=== PATIENT | female | born 1970 | race Caucasian/White ===

== ENCOUNTER → 2016-12-16 | Outpatient (CLI) | payer OTHER ==
--- NOTE | 2016-12-17 10:02 | MM ---
Reason for exam: follow-up at short interval from prior study. Last mammogram was performed 6 months ago. History: Patient is nulliparous. Family history of breast cancer in maternal cousin at age 42, premenopausal breast cancer in mother at age 40, and premenopausal breast cancer in paternal cousin at age 38. Benign MG stereo VAD BX RT of the right breast, June 16, 2016. Cancelled Left Needle Localization of both breasts, October 22, 2006. Cancelled Left Mammotome of the left breast, October 15, 2006. Benign excisional biopsy of the right breast, August 30, 2000. Physical Findings: Nurse did not find any significant physical abnormalities on exam. MG 3D Diag Mammo W/Cad RT CC and MLO view(s) were taken of the right breast. Prior study comparison: June 08, 2016, bilateral MG 3d diag mammo w/cad DIONI. The breast tissue is extremely dense which could obscure a lesion on mammography. Previous mammotome biopsy within the right breast. No significant new findings when compared with previous films. These results were verbally communicated with the patient and result sheet given to the patient on 12/16/16. ASSESSMENT: Benign, BI-RAD 2 RECOMMENDATION: Follow-up diagnostic mammogram of both breasts in 6 months. Back on schedule May 2017.
== END | disposition home or self-care (01) ==
LOC: RADMAMWWP 15:31
PROVIDERS: ATTEND Surgery
DX: R92.8 Other abnormal and inconclusive findings on diagnostic imaging of breast (principal); N83.209 Unspecified ovarian cyst, unspecified side
CPT/HCPCS: 86304; G0206; G0279

== ENCOUNTER → 2017-06-16 | Outpatient (CLI) | payer OTHER ==
--- NOTE | 2017-06-17 07:58 | MM ---
Reason for exam: follow-up at short interval from prior study. Last mammogram was performed 6 months ago. History: Patient is nulliparous. Family history of breast cancer in maternal cousin at age 42, premenopausal breast cancer in mother at age 40, and premenopausal breast cancer in paternal cousin at age 38. Benign MG stereo VAD BX RT of the right breast, June 16, 2016. Cancelled Left Needle Localization of both breasts, October 22, 2006. Cancelled Left Mammotome of the left breast, October 15, 2006. Benign excisional biopsy of the right breast, August 30, 2000. Physical Findings: Nurse did not find any significant physical abnormalities on exam. MG 3D Diag Mammo W/Cad DIONI Bilateral CC and MLO view(s) were taken. Prior study comparison: December 16, 2016, right breast MG 3d diag mammo w/cad RT. June 08, 2016, bilateral MG 3d diag mammo w/cad DIONI. The breast tissue is heterogeneously dense. This may lower the sensitivity of mammography. Finding: There are typically benign round calcifications in both breasts. Previous mammotome biopsy in the right breast. There is a chronic nodularity bilaterally at axilla. There is no discrete abnormality. These results were verbally communicated with the patient and result sheet given to the patient on 06/16/17. ASSESSMENT: Benign, BI-RAD 2 RECOMMENDATION: Routine screening mammogram of both breasts in 1 year.
== END | disposition home or self-care (01) ==
LOC: RADMAMWWP 15:26
PROVIDERS: ATTEND Student in an Organized Health Care Education/Training Program
DX: R92.8 Other abnormal and inconclusive findings on diagnostic imaging of breast (principal)
CPT/HCPCS: G0204; G0279

== ENCOUNTER → 2017-11-17 | Outpatient (CLI) | payer BC ==
--- NOTE | 2017-11-17 12:52 | US ---
EXAMINATION TYPE: US transvaginal DATE OF EXAM: 11/17/2017 COMPARISON: 10/31/2014 CLINICAL HISTORY: 47-year-old female D25.9 Uterine Fibroids. F/U known fibroid TECHNIQUE: Transvaginal (TV). Date of LMP: 11/12/2017 FINDINGS: EXAM MEASUREMENTS: Uterus: 9.9 x 6.9 x 7.1 cm Endometrial Stripe: Difficult to clearly delineate, estimated at 0.6 cm Right Ovary: 2.6 x 1.5 x 1.8 cm Left Ovary: 2.4 x 1.4 x 2.0 cm 1. Uterus: Anteverted Heterogeneous with known large central fibroid measuring= 5.8 x 5.3 x 6.1 cm (increased in size since previous where it measured 5.1 x 4.6 cm). 2. Endometrium: Difficult to clearly delineate, seems to be displaced posteriorly by the large fibro id. 3. Right Ovary: wnl 4. Left Ovary: wnl 5. Bilateral Adnexa: wnl 6. Posterior cul-de-sac: wnl IMPRESSION: 1. Large central uterine fibroid measuring 6.1 x 5.8 cm shows interval increase in size, previously m easuring 5.1 x 4.6 cm. 2. The endometrial stripe is difficult to delineate due to the large fibroid but appears to be displa ramila posteriorly. If more detailed fibroid mapping is desired, consider female pelvic MRI.
== END | disposition home or self-care (01) ==
LOC: RADUSWWP 09:32
PROVIDERS: ATTEND Obstetrics & Gynecology
DX: D25.9 Leiomyoma of uterus, unspecified (principal)
CPT/HCPCS: 76830

== ENCOUNTER → 2017-11-17 | Outpatient (CLI) | payer BC | LOC: LABWHC1 09:57 | PROVIDERS: ATTEND Obstetrics & Gynecology | DX: N83.209 Unspecified ovarian cyst, unspecified side (principal) | CPT/HCPCS: 36415; 86304 ==

== ENCOUNTER → 2018-06-17 | Outpatient (CLI) | payer BC ==
--- NOTE | 2018-06-17 11:15 | MM ---
Reason for exam: additional evaluation requested from prior study. Last mammogram was performed 1 year ago. History: Patient is nulliparous. Family history of breast cancer in maternal cousin at age 42, premenopausal breast cancer in mother at age 40, and premenopausal breast cancer in paternal cousin at age 38. Benign MG stereo VAD BX RT of the right breast, June 16, 2016. Cancelled Left Needle Localization of both breasts, October 22, 2006. Cancelled Left Mammotome of the left breast, October 15, 2006. Benign excisional biopsy of the right breast, August 30, 2000. Physical Findings: Nurse did not find any significant physical abnormalities on exam. MG 3D Diag Mammo W/Cad DIONI Bilateral CC and MLO view(s) were taken. Prior study comparison: June 16, 2017, bilateral MG 3d diag mammo w/cad DIONI. December 16, 2016, right breast MG 3d diag mammo w/cad RT. The breast tissue is extremely dense which could obscure a lesion on mammography. Stable benign calcifications. Increasing nodularity upper outer right breast. These results were verbally communicated with the patient and result sheet given to the patient on 06/17/18. ASSESSMENT: Incomplete: need additional imaging evaluation, BI-RAD 0 RECOMMENDATION: Ultrasound of both breasts.
--- NOTE | 2018-06-17 11:18 | USB ---
Reason for exam: additional evaluation requested from abnormal screening. History: Patient is nulliparous. Family history of breast cancer in maternal cousin at age 42, premenopausal breast cancer in mother at age 40, and premenopausal breast cancer in paternal cousin at age 38. Benign MG stereo VAD BX RT of the right breast, June 16, 2016. Cancelled Left Needle Localization of both breasts, October 22, 2006. Cancelled Left Mammotome of the left breast, October 15, 2006. Benign excisional biopsy of the right breast, August 30, 2000. US Breast Limited RT Right limited breast ultrasound including focal area of concern, retroareolar and axilla demonstrates a 3 x 1.4 x 2.6cm oval, cystic lesion at 9 o'clock favor simple cyst due to size and deep location advise, a 0.7 x 0.3 x 0.5cm cystic lesion at 12 o'clock and a 0.4 x 0.4 x 0.5cm mixed, hypoechoic lesion at 12 o'clock. These results were verbally communicated with the patient and result sheet given to the patient on 06/17/18. ASSESSMENT: Probably benign, BI-RAD 3 RECOMMENDATION: Ultrasound of the right breast in 6 months.
== END | disposition home or self-care (01) ==
LOC: RADMAMWWP 07:28
PROVIDERS: ATTEND Student in an Organized Health Care Education/Training Program
DX: R92.8 Other abnormal and inconclusive findings on diagnostic imaging of breast (principal)
CPT/HCPCS: 77062; 77066

== ENCOUNTER → 2018-12-01 | Outpatient (CLI) | payer BC ==
--- NOTE | 2018-12-01 09:52 | US ---
EXAMINATION TYPE: US transvaginal DATE OF EXAM: 12/01/2018 COMPARISON: 11/17/2017 CLINICAL HISTORY: D25.9 F/U Uterine Fibroid. TECHNIQUE: . Transvaginal sonographic images were medically necessary per order to better assess the following anatomy: uterus and ovary; patient stated is on last day of menstrual cycle; G0. Date of LMP: 11/27/2018 EXAM MEASUREMENTS: Uterus: 9.9 x 8.5 x 8.5 cm Endometrial Stripe: 1.2 cm. Assessment is limited. Right Ovary: 3.1 x 1.1 x 1.2 cm Left Ovary: 2.8 x 2.4 x 1.2 cm 1. Uterus: Anteverted; complex Nabothian Cyst imaged in cervix = 0.8 x 0.6 x 0.4cm ; heterogeneous u terine fibroid mid and upper uterus and may be compressing and obscuring true borders of endometrium. 2. Endometrium: possibly seen in upper uterus. Assessment is markedly limited. 3. Right Ovary: wnl 4. Left Ovary: small simple cyst = 1.1 x 1.1 x 0.7cm 5. Bilateral Adnexa: wnl 6. Posterior cul-de-sac: wnl IMPRESSION: 1. There is a heterogeneous appearing mass in the mid and upper uterus likely related to a fibroid wh ich obscures the borders of the endometrium. Has a similar appearance to the prior exam. Complex cyst ic structure in the cervix noted measuring 8 mm. Recommend assessment of the cervix. 2. Limited assessment of the endometrium due to large suspected heterogeneous uterine fibroid which w as also noted on the prior exam. Visualized portions measure 1.2 cm and should be correlated with denisse rine cycle for thickness.
== END | disposition home or self-care (01) ==
LOC: RADUSWWP 08:46
PROVIDERS: ATTEND Obstetrics & Gynecology
DX: D25.9 Leiomyoma of uterus, unspecified (principal); N83.209 Unspecified ovarian cyst, unspecified side
CPT/HCPCS: 36415; 76830; 86304

== ENCOUNTER → 2018-12-28 | Outpatient (CLI) | payer BC ==
--- NOTE | 2018-12-29 07:41 | USB ---
Reason for exam: follow-up at short interval from prior study. History: Patient is nulliparous. Family history of breast cancer in maternal cousin at age 42, premenopausal breast cancer in mother at age 40, and premenopausal breast cancer in paternal cousin at age 38. Benign MG stereo VAD BX RT of the right breast, June 16, 2016. Cancelled Left Needle Localization of both breasts, October 22, 2006. Cancelled Left Mammotome of the left breast, October 15, 2006. Benign excisional biopsy of the right breast, August 30, 2000. Physical Findings: Nurse did not find any significant physical abnormalities on exam. US Breast RT Right complete breast ultrasound includes all four quadrants, the retroareolar region and axilla. Finding demonstrates a 3.2 x 1.0 x 2.6cm oval, cystic lesion at 10 o'clock BB and a 0.8 x 0.3 x 0.5cm lobular, cystic lesion at 11 o'clock BB. These results were verbally communicated with the patient and result sheet given to the patient on 12/28/18. ASSESSMENT: Benign, BI-RAD 2 RECOMMENDATION: Routine screening mammogram of both breasts in 5 months. Back on schedule for May 2019.
== END | disposition home or self-care (01) ==
LOC: RADUSWWP 14:52
PROVIDERS: ATTEND Student in an Organized Health Care Education/Training Program
DX: N60.01 Solitary cyst of right breast (principal)

== ENCOUNTER → 2019-06-29 | Outpatient (CLI) | payer OTHER ==
--- NOTE | 2019-06-30 15:08 | MM ---
Reason for exam: screening (asymptomatic). Last mammogram was performed 1 year ago. History: Patient is nulliparous. Family history of breast cancer in maternal cousin at age 42, premenopausal breast cancer in mother at age 40, and premenopausal breast cancer in paternal cousin at age 38. Benign MG stereo VAD BX RT of the right breast, June 16, 2016. Cancelled Left Needle Localization of both breasts, October 22, 2006. Cancelled Left Mammotome of the left breast, October 15, 2006. Benign excisional biopsy of the right breast, August 30, 2000. Physical Findings: A clinical breast exam by your physician is recommended on an annual basis and results should be correlated with mammographic findings. MG 3D Screening Mammo W/Cad Bilateral CC and MLO view(s) were taken. Prior study comparison: June 17, 2018, bilateral MG 3d diag mammo w/cad DIONI. June 16, 2017, bilateral MG 3d diag mammo w/cad DIONI. The breast tissue is heterogeneously dense. This may lower the sensitivity of mammography. There is a oval circumscribed 2.2 x 3.7cm right upper outer quadrant middle posterior depth mass. Benign appearing bilateral calcifications. No new suspicious abnormality on the left breast. Right biopsy marker noted. ASSESSMENT: Incomplete: need additional imaging evaluation, BI-RAD 0 RECOMMENDATION: Ultrasound of the right breast. [facility] will attempt to contact patient to return for ultrasound.
== END | disposition home or self-care (01) ==
LOC: RADMAMWWP 07:51
PROVIDERS: ATTEND Student in an Organized Health Care Education/Training Program
DX: Z12.31 Encounter for screening mammogram for malignant neoplasm of breast (principal)
CPT/HCPCS: 77063; 77067

== ENCOUNTER → 2019-07-07 | Outpatient (CLI) | payer OTHER ==
--- NOTE | 2019-07-07 09:33 | USB ---
Reason for exam: additional evaluation requested from abnormal screening. History: Patient is nulliparous. Family history of breast cancer in maternal cousin at age 42, premenopausal breast cancer in mother at age 40, and premenopausal breast cancer in paternal cousin at age 38. Benign MG stereo VAD BX RT of the right breast, June 16, 2016. Cancelled Left Needle Localization of both breasts, October 22, 2006. Cancelled Left Mammotome of the left breast, October 15, 2006. Benign excisional biopsy of the right breast, August 30, 2000. Physical Findings: Nurse Summary: nodular asymmetric thickening (nurse kp). US Breast Workup Limited RT Right limited breast ultrasound including focal area of concern, retroareolar and axilla demonstrates a 3.5 x 2.0 x 1.9cm oval, lobular, cystic lesion at 10 o'clock and a 0.8 x 0.6 x 0.3cm cystic cluster with small calcification at 11 o'clock. These results were verbally communicated with the patient and result sheet given to the patient on 07/07/19. ASSESSMENT: Benign, BI-RAD 2 RECOMMENDATION: Return to routine screening mammogram schedule for both breasts.
== END | disposition home or self-care (01) ==
LOC: RADUSWWP 06:58
PROVIDERS: ATTEND Student in an Organized Health Care Education/Training Program
DX: R92.8 Other abnormal and inconclusive findings on diagnostic imaging of breast (principal)

== ENCOUNTER → 2020-02-09 | Outpatient (CLI) | payer OTHER ==
--- NOTE | 2020-02-20 10:43 | EM ---
EVENT MONITOR EVENT MONITOR: This is an event monitor which shows. 1. Sinus rhythm. 2. Mostly sinus tachycardia, one atrial couplet. No sustained or nonsustained arrhythmias. IMPRESSION: Sinus tachycardia. MMODL / IJN: [id number] /
== END | disposition home or self-care (01) ==
LOC: RADECHMAIN 11:57
PROVIDERS: ATTEND Family Medicine
DX: R00.2 Palpitations (principal)
CPT/HCPCS: 93270

== ENCOUNTER → 2020-02-28 | Outpatient (CLI) | payer OTHER ==
--- NOTE | 2020-03-04 15:10 | US ---
EXAMINATION TYPE: US transvaginal DATE OF EXAM: 02/28/2020 COMPARISON: 12/01/2018 CLINICAL HISTORY: 49-year-old female D25.9 Leiomyoma of uterus, unspecified. TECHNIQUE: Transvaginal (TV). Date of LMP: 3 weeks ago FINDINGS: EXAM MEASUREMENTS: Uterus: 9.5 x 4.1 x 7.3 cm Endometrial Stripe: 1.4 cm Right Ovary: 3.4 x 3.6 x 1.9 cm Left Ovary: 2.3 x 2. x 2.4 cm 1. Uterus: Anteverted but retroflexed. Large left fibroid measures 6.9 x 6.2 x 6.0 cm, and right michelle ed fibroid measures 4.6 x 2.9 x 3.4 cm. 2. Endometrium: wnl, upper limits of normal in thickness 3. Right Ovary: wnl 4. Left Ovary: Mixed lesion with peripheral flow measures 1.8 x 1.6 x 1.2 cm. 5. Bilateral Adnexa: wnl 6. Posterior cul-de-sac: No free fluid IMPRESSION: 1. Anteverted but retroflexed uterus with fibroid change, largest fibroid measuring 8.9 cm on the lef t and 4.6 cm on the right. Vertebral either a hemorrhagic corpus luteum or other hemorrhagic cyst with retractile clot in the le ft ovary measuring 1.8 cm. Follow-up in 6-8 weeks to ensure resolution.
== END | disposition home or self-care (01) ==
LOC: RADUSWWP 14:53
PROVIDERS: ATTEND Obstetrics & Gynecology
DX: D25.9 Leiomyoma of uterus, unspecified (principal); N83.12 Corpus luteum cyst of left ovary
CPT/HCPCS: 36415; 76830; 86304

== ENCOUNTER → 2020-03-20 | Outpatient (CLI) | payer OTHER ==
--- NOTE | 2020-03-20 18:36 | ECHOF ---
Referral Reason:R00.2 Palpitations MEASUREMENTS -------- HEIGHT: 167.6 cm WEIGHT: 81.2 kg BP: 137/75 RVIDd: 2.4 cm (< 3.3) IVSd: 0.9 cm (0.6 - 1.1) LVIDd: 3.8 cm (3.9 - 5.3) LVPWd: 0.9 cm (0.6 - 1.1) IVSs: 1.3 cm LVIDs: 2.4 cm LVPWs: 1.5 cm LA Diam: 2.9 cm (2.7 - 3.8) LAESV Index (A-L): 21.03 ml/m Ao Diam: 2.6 cm (2.0 - 3.7) MV EXCURSION: 16.139 mm (> 18.000) MV EF SLOPE: 129 mm/s (70 - 150) EPSS: 0.4 cm MV E Gerry: 0.86 m/s MV DecT: 202 ms MV A Gerry: 0.80 m/s MV E/A Ratio: 1.07 RAP: 5.00 mmHg RVSP: 18.48 mmHg FINDINGS -------- Sinus rhythm. This was a technically adequate study. The left ventricular size is normal. Left ventricular wall thickness is normal. Overall left vent ricular systolic function is normal with, an EF between 60 - 65 %. The right ventricle is normal in size. The right atrium is normal in size. Interatrial and interventricular septum intact. The aortic valve is trileaflet and appears structurally normal. The mitral valve is normal. Mild tricuspid regurgitation present. Right ventricular systolic pressure is normal at < 35 mmHg. Trace/mild (physiologic) pulmonic regurgitation. The aortic root size is normal. Normal inferior vena cava with normal inspiratory collapse consistent with estimated right atrial pre ssure of 5 mmHg. There is no pericardial effusion. CONCLUSIONS -------- 1. The left ventricular size is normal. 2. Left ventricular wall thickness is normal. 3. Overall left ventricular systolic function is normal with, an EF between 60 - 65 %. 4. Mild tricuspid regurgitation present. 5. Trace/mild (physiologic) pulmonic regurgitation. 6. There is no pericardial effusion. SUPPORT GROUP MANAGER: Ludmila Neil RUST
== END | disposition home or self-care (01) ==
LOC: RADECHMAIN 14:52
PROVIDERS: ATTEND Family Medicine
DX: I07.1 Rheumatic tricuspid insufficiency (principal); I37.1 Nonrheumatic pulmonary valve insufficiency
CPT/HCPCS: 93306

== ENCOUNTER → 2020-07-15 | Outpatient (CLI) | payer OTHER ==
--- NOTE | 2020-07-15 13:28 | MM ---
Reason for exam: screening (asymptomatic). Last mammogram was performed 1 year and 1 month ago. History: Patient is nulliparous. Family history of breast cancer in maternal cousin at age 42, premenopausal breast cancer in mother at age 40, and premenopausal breast cancer in paternal cousin at age 38. Benign MG stereo VAD BX RT of the right breast, June 16, 2016. Cancelled Left Needle Localization of both breasts, October 22, 2006. Cancelled Left Mammotome of the left breast, October 15, 2006. Benign excisional biopsy of the right breast, August 30, 2000. Physical Findings: A clinical breast exam by your physician is recommended on an annual basis and results should be correlated with mammographic findings. MG 3D Screening Mammo W/Cad Bilateral CC and MLO view(s) were taken. Prior study comparison: June 29, 2019, bilateral MG 3d screening mammo w/cad. June 17, 2018, bilateral MG 3d diag mammo w/cad DIONI. The breast tissue is heterogeneously dense. This may lower the sensitivity of mammography. There are benign appearing round calcifications in the left breast. Previous mammotome biopsy in the right breast. There is no discrete abnormality. ASSESSMENT: Benign, BI-RAD 2 RECOMMENDATION: Routine screening mammogram of both breasts in 1 year.
== END | disposition home or self-care (01) ==
LOC: RADMAMWWP 09:16
PROVIDERS: ATTEND Student in an Organized Health Care Education/Training Program
DX: Z12.31 Encounter for screening mammogram for malignant neoplasm of breast (principal)
CPT/HCPCS: 77063; 77067

== ENCOUNTER → 2021-05-02 | Outpatient (CLI) | payer OTHER ==
--- NOTE | 2021-05-02 10:20 | US ---
EXAMINATION TYPE: US pelvis complete transvag DATE OF EXAM: 05/02/2021 COMPARISON: [facility] pelvic ultrasound February 28, 2020 CLINICAL HISTORY: D25.9 uterine fibroids. Known fibroids, assess size today TECHNIQUE: TA and TV. Transabdominal sonographic images of the pelvis were acquired. Transvaginal sonographic images were medically necessary to better assess the following anatomy: fibroids Date of LMP: 03/29/2021 EXAM MEASUREMENTS: Uterus: 11.0 x 8.3 x 9.0 cm Endometrial Stripe: not seen Right Ovary: 2.3 x 2.1 x 1.9cm Left Ovary: not seen 1. Uterus: Retroflexed, heterogenous and difficult to penetrate due to shadowing fibroid, on today's exam I could not delineate one fibroid from the other, full dimension estimate = 8.3 x 7.8 x 7.2cm 2. Endometrium: unable to visualize with certainty 3. Right Ovary: 1.4 x 2.1 x 1.3cm 4. Left Ovary: not seen 5. Bilateral Adnexa: wnl 6. Posterior cul-de-sac: wnl Retroflexed heterogeneous uterus. Difficult to accurately described fibroids due to shadowing heterog eneity with poorly visualized margins. Endometrial not stripe not seen with certainty no free fluid. Heterogeneous poorly marginated intramural fibroid seen better on transabdominal imaging measures guillermina roximately 8.3 cm long axis towards end of study. IMPRESSION: Poor accurate description of large shadowing intrauterine fibroid. Consider pelvic MRI to better evaluate if desired.
== END | disposition home or self-care (01) ==
LOC: RADUSWWP 09:30
PROVIDERS: ATTEND Obstetrics & Gynecology
DX: D25.9 Leiomyoma of uterus, unspecified (principal)
CPT/HCPCS: 36415; 76830; 76856; 86304

== ENCOUNTER → 2021-07-31 | Outpatient (CLI) | payer OTHER ==
--- NOTE | 2021-08-04 11:36 | MM ---
Reason for exam: screening (asymptomatic). Last mammogram was performed 1 year and 1 month ago. History: Patient is nulliparous. Family history of breast cancer in maternal cousin at age 42, premenopausal breast cancer in mother at age 40, and premenopausal breast cancer in paternal cousin at age 38. Benign MG stereo VAD BX RT of the right breast, June 16, 2016. Cancelled Left Needle Localization of both breasts, October 22, 2006. Cancelled Left Mammotome of the left breast, October 15, 2006. Benign excisional biopsy of the right breast, August 30, 2000. Physical Findings: A clinical breast exam by your physician is recommended on an annual basis and results should be correlated with mammographic findings. MG 3D Screening Mammo W/Cad Bilateral CC and MLO view(s) were taken. Prior study comparison: July 15, 2020, bilateral MG 3d screening mammo w/cad. June 29, 2019, bilateral MG 3d screening mammo w/cad. The breast tissue is heterogeneously dense. This may lower the sensitivity of mammography. Previous mammotome biopsy in the right breast. There is chronic nodularity in the right breast. No significant changes when compared with prior studies. ASSESSMENT: Benign, BI-RAD 2 RECOMMENDATION: Routine screening mammogram of both breasts in 1 year. Patient should continue monthly self breast exams. A negative report should not preclude additional follow up of suspicious palpable abnormalities.
== END | disposition home or self-care (01) ==
LOC: RADMAMWWP 07:32
PROVIDERS: ATTEND Student in an Organized Health Care Education/Training Program
DX: Z12.31 Encounter for screening mammogram for malignant neoplasm of breast (principal); Z80.3 Family history of malignant neoplasm of breast
CPT/HCPCS: 77063; 77067

== ENCOUNTER → 2022-05-04 | Outpatient (CLI) | payer OTHER ==
--- NOTE | 2022-05-04 10:30 | US ---
EXAMINATION TYPE: US transvaginal DATE OF EXAM: 05/04/2022 COMPARISON: Pelvic ultrasound 05/02/2021. CLINICAL HISTORY: D25.9 LEIOMYOMA OF UTERUS. Follow up fibroid. TECHNIQUE: Transvaginal (TV) Date of LMP: 08/03/2021, G0 EXAM MEASUREMENTS: Uterus: 10.1 x 8.0 x 9.0 cm 1. Uterus: Anteverted Large lobular fibroid seen = 7.9 x 7.0 x 6.9 cm . It is again heterogenous a nd difficult to penetrate due to shadowing fibroid. There are calcifications demonstrated within the fibroid with shadowing. 2. Endometrium: Not visualized due to fibroid 3. Right Ovary: Obscured by overlying bowel gas 4. Left Ovary: Obscured by overlying bowel gas 5. Bilateral Adnexa: wnl 6. Posterior cul-de-sac: no free fluid Cervix- nabothian cyst IMPRESSION: Fibroid changes of the uterus redemonstrated with similar large 7.9 cm fibroid. Endometrium is not vi sualized due to fibroid changes. Consider pelvic MRI to better evaluate if desired.
== END | disposition home or self-care (01) ==
LOC: RADUSWWP 08:05
PROVIDERS: ATTEND Obstetrics & Gynecology
DX: D25.9 Leiomyoma of uterus, unspecified (principal)
CPT/HCPCS: 76830; 82310; 86304

== ENCOUNTER → 2022-08-05 | Outpatient (CLI) | payer OTHER ==
--- NOTE | 2022-08-06 17:30 | MM ---
Reason for Exam: Screening (asymptomatic). Last screening mammogram was performed 12 month(s) ago. Patient History: Menarche at age 10. Patient has no children. 06/16/2016, Benign Core Biopsy on the right side. 08/30/2000, Benign Excisional Biopsy on the right side. 10/22/2006, Bilateral Cancelled Left Needle Localization. 10/15/2006, Cancelled Left Mammotome on the left side. Paternal cousin had breast cancer, age 38. Maternal cousin had breast cancer, age 42. Mother had breast cancer, age 40. Risk Values: Queta 5 year model risk: 3.4%. NCI Lifetime model risk: 25.4%. Prior Study Comparison: 06/29/2019 Bilateral Screening Mammogram, [facility]. 07/15/2020 Bilateral Screening Mammogram, [facility]. 07/31/2021 Bilateral Screening Mammogram, [facility]. Tissue Density: The breast tissue is extremely dense which could obscure a lesion on mammography. Findings: Analyzed By CAD. Pattern appears symmetrical and stable. A core marker is within the right breast. There is a new group of calcifications within the medial right breast. Magnification views are recommended. Some grouped calcifications are on the left mid medial lateral oblique view. Magnification views recommended for additional evaluation. No suspicious groups of microcalcifications, spiculated or lobular masses, architectural distortion or other secondary signs of malignancy are mammographically apparent. Overall Assessment: Incomplete: need additional imaging evaluation, BI-RAD 0 Management: Diagnostic Mammogram of both breasts. A negative mammogram report should not preclude additional follow up of suspicious palpable abnormalities. Patient should continue monthly self breast exam. A clinical breast exam by your physician is recommended on an annual basis and results should be correlated with mammographic findings. Electronically signed and approved by: Marko Webster D.O. Radiologis
== END | disposition home or self-care (01) ==
LOC: RADMAMWWP 15:00
PROVIDERS: ATTEND Surgery
DX: Z12.31 Encounter for screening mammogram for malignant neoplasm of breast (principal); Z80.3 Family history of malignant neoplasm of breast; Z98.890 Other specified postprocedural states
CPT/HCPCS: 77063; 77067

== ENCOUNTER → 2022-08-14 | Outpatient (CLI) | payer OTHER ==
--- NOTE | 2022-08-14 13:34 | MM ---
Reason for Exam: Additional evaluation requested from abnormal screening. Last screening mammogram was performed less than 1 month ago. Patient History: Menarche at age 10. Patient has no children. Postmenopausal. 06/16/2016, Benign Core Biopsy on the right side. 08/30/2000, Benign Excisional Biopsy on the right side. 10/22/2006, Bilateral Cancelled Left Needle Localization. 10/15/2006, Cancelled Left Mammotome on the left side. Paternal cousin had breast cancer, age 38. Maternal cousin had breast cancer, age 42. Mother had breast cancer, age 40. Last menstrual period: 08/07/2021 Risk Values: Queta 5 year model risk: 3.4%. NCI Lifetime model risk: 25.4%. Prior Study Comparison: 07/31/2021 Bilateral Screening Mammogram, [facility]. 08/05/2022 Bilateral MG 3D screening mammo w/cad, [facility]. Tissue Density: The breast tissue is heterogeneously dense. This may lower the sensitivity of mammography. Findings: Analyzed By CAD. There are and scattered fine calcifications bilaterally. A suspicious cluster of microcalcifications is not identified. This is a change from prior studies and close follow-up is warranted. Bilateral breast mammogram with magnification views in 6 months is recommended. Overall Assessment: Probably benign, BI-RAD 3 Management: Diagnostic Mammogram of both breasts in 6 months. A clinical breast exam by your physician is recommended on an annual basis and results should be correlated with mammographic findings. This exam should not preclude additional follow-up of suspicious palpable abnormalities. Results were given to the patient verbally at the time of exam. Electronically signed and approved by: Marko Webster D.O. Radiologis
== END | disposition home or self-care (01) ==
LOC: RADMAMWWP 12:48
PROVIDERS: ATTEND Surgery
DX: R92.8 Other abnormal and inconclusive findings on diagnostic imaging of breast (principal); Z78.0 Asymptomatic menopausal state; Z80.3 Family history of malignant neoplasm of breast
CPT/HCPCS: 77062; 77066

== ENCOUNTER → 2022-10-09 | Outpatient (CLI) | payer OTHER ==
--- NOTE | 2022-10-09 07:40 | US ---
EXAMINATION TYPE: US gallbladder DATE OF EXAM: 10/09/2022 COMPARISON: NONE CLINICAL HISTORY: R74.8 ELEVATED ALKALINE PHOSPHATASE LEVELS. TECHNIQUE: Multiple sonographic images of the right upper quadrant are obtained. FINDINGS: EXAM MEASUREMENTS: Liver Length: 12.8 cm Gallbladder Wall: 0.21 cm CBD: 0.15 cm Right Kidney: 9.3 x 4.9 x 5.2 cm Pancreas: wnl Liver: Increased attenuation. Anechoic mass right lobe, 1.5 x 1.6 x 1.3cm. Gallbladder: wnl Evidence for sonographic Orantes's sign: No CBD: wnl Right Kidney: wnl IMPRESSION: 1. Hepatic steatosis. 2. Simple hepatic cyst.
== END | disposition home or self-care (01) ==
LOC: RADUSWWP 07:04
PROVIDERS: ATTEND Family Medicine
DX: K76.0 Fatty (change of) liver, not elsewhere classified (principal); K76.89 Other specified diseases of liver; R74.8 Abnormal levels of other serum enzymes
CPT/HCPCS: 76705

== ENCOUNTER → 2023-02-22 | Outpatient (CLI) | payer OTHER ==
--- NOTE | 2023-02-22 14:40 | MM ---
Reason for Exam: Follow-up at short interval from prior study. Last screening mammogram was performed 7 month(s) ago. Patient History: Menarche at age 10. Patient has no children. Postmenopausal. 06/16/2016, Benign Core Biopsy on the right side. 08/30/2000, Benign Excisional Biopsy on the right side. 10/22/2006, Bilateral Cancelled Left Needle Localization. 10/15/2006, Cancelled Left Mammotome on the left side. Paternal cousin had breast cancer, age 38. Maternal cousin had breast cancer, age 42. Mother had breast cancer, age 40. Risk Values: Queta 5 year model risk: 3.5%. NCI Lifetime model risk: 25.0%. Tissue Density: The breast tissue is heterogeneously dense. This may lower the sensitivity of mammography. Findings: Analyzed By CAD. Pattern appears symmetrical and stable. Calcifications are evident. These grouped calcifications bilaterally appear stable. Surgical clip is within the right breast. No suspicious groups of microcalcifications, spiculated or lobular masses, architectural distortion or other secondary signs of malignancy are mammographically apparent. Overall Assessment: Probably benign, BI-RAD 3 Management: Diagnostic Mammogram of both breasts in 6 months. A negative mammogram report should not preclude additional follow up of suspicious palpable abnormalities. Patient should continue monthly self breast exam. A clinical breast exam by your physician is recommended on an annual basis and results should be correlated with mammographic findings. Electronically signed and approved by: Marko Webster D.O. Radiologis
== END | disposition home or self-care (01) ==
LOC: RADMAMWWP 14:05
PROVIDERS: ATTEND Surgery
DX: R92.8 Other abnormal and inconclusive findings on diagnostic imaging of breast (principal); Z78.0 Asymptomatic menopausal state; Z80.3 Family history of malignant neoplasm of breast
CPT/HCPCS: 77062; 77066

== ENCOUNTER → 2023-03-09 | Outpatient (CLI) | payer OTHER ==
--- NOTE | 2023-03-09 13:06 | US ---
EXAMINATION TYPE: US transvaginal DATE OF EXAM: 03/09/2023 COMPARISON: 05/04/2022 CLINICAL INDICATION: Female, 52 years old with history of D25.9 LEIOMYOMA OF UTERUS; follow up fibroi d TECHNIQUE: Transvaginal (TV) Transvaginal sonographic images were medically necessary to better ass ess the following anatomy: Uterus Date of LMP: last period was July 2021, but there was a period like episode early December 2022 EXAM MEASUREMENTS: Uterus: 6.5x6.3x8.1 cm Endometrial Stripe: 0.5, not measured with confidence cm Right Ovary: not visualized cm Left Ovary: 1.4x0.9x1.0 cm 1. Uterus: Anteverted large fibroid again seen with calcified and heterogenous components: 6.5x6.1 x6.9cm, difficult to measure due to size and shadowing 2. Endometrium: obscured by fibroid, small portion of possible endometrium imaged and measured at fu ndus with low confidence 3. Right Ovary: Obscured by overlying bowel gas 4. Left Ovary: wnl 5. Bilateral Adnexa: Obscured by overlying bowel gas 6. Posterior cul-de-sac: wnl exam slightly limited due to bowel gas and large fibroid IMPRESSION: 1. Stable features of fibroid uterus.
[2023-03-09 15:39] LABS: Basophils # (A) 0.03 X 10*3/uL (0.00-0.10); Basophils % (A) 0.6 %; Eosinophils # (A) 0.12 X 10*3/uL (0.04-0.35); Eosinophils % (A) 2.3 %; HCT 39.8 % (37.2-46.3); HGB 13.4 d/dL (12.0-15.0); Lymphocytes # (A) 1.53 X 10*3/uL (0.90-5.00); Lymphocytes % (A) 29.7 %; MCH 29.8 pg (27.0-32.0); MCHC 33.7 d/dL (32.0-37.0); MCV 88.4 FL (80.0-97.0); Mean Platelet Volume 9.9 FL (9.5-12.2); Monocytes # (A) 0.44 X 10*3/uL (0.20-1.00); Monocytes % (A) 8.5 %; NRBC Per 100 WBC 0 X 10*3/uL (0.00-0.01); Neutrophils # (A) 3.02 X 10*3/uL (1.80-7.70); Neutrophils % (A) 58.7 %; Platelet Count 255 X 10*3/uL (140-440); RDW 12.3 % (11.5-14.5); WBC 5.15 X 10*3/uL (4.50-10.00)
[2023-03-09 15:48] LABS: ALT 29 U/L (8-44); AST 25 U/L (13-35); Albumin 4.9 d/dL (3.8-4.9); Albumin/Globulin Ratio 2.23 Ratio (1.60-3.17); Alkaline Phosphatase 146 U/L (41-126); Blood Urea Nitrogen 19.5 mg/dL (9.0-27.0); Calcium 9.6 mg/dL (8.7-10.3); Carbon Dioxide 26.3 mmol/L (21.6-31.8); Chloride 104 mmol/L (96-109); Globulin 2.2 d/dL (1.6-3.3); Glucose 95 mg/dL (70-110); Potassium 4.2 mmol/L (3.5-5.5); Sodium 141 mmol/L (135-145); Total Bilirubin 0.2 mg/dL (0.3-1.2); Total Protein 7.1 d/dL (6.2-8.2)
[2023-03-10 03:46] LABS: Cancer Antigen 125 15.6 U/mL (0.0-30.1)
== END | disposition home or self-care (01) ==
LOC: RADUSWWP 12:09
PROVIDERS: ATTEND Obstetrics & Gynecology
DX: D25.9 Leiomyoma of uterus, unspecified (principal); K76.0 Fatty (change of) liver, not elsewhere classified; N83.209 Unspecified ovarian cyst, unspecified side
CPT/HCPCS: 76830; 80053; 85025; 86304

== ENCOUNTER → 2023-08-27 | Outpatient (CLI) | payer OTHER ==
--- NOTE | 2023-08-27 10:13 | USB ---
Reason for Exam: Additional evaluation requested from prior study. Patient History: Menarche at age 10. Patient has no children. Postmenopausal. Patient tested for BRCA2 outcome was uncertain variant. 06/16/2016, Benign Core Biopsy on the right side. 08/30/2000, Benign Excisional Biopsy on the right side. 10/22/2006, Bilateral Cancelled Left Needle Localization. 10/15/2006, Cancelled Left Mammotome on the left side. Paternal cousin had breast cancer, age 38. Maternal cousin had breast cancer, age 42. Mother had breast cancer, age 40. Risk Values: Queta 5 year model risk: 3.5%. NCI Lifetime model risk: 25.0%. Technique: Method: Targeted. Prior Study Comparison: 08/05/2022 Bilateral MG 3D screening mammo w/cad, [facility]. 08/14/2022 Bilateral MG 3D work up w/cad [facility], [facility]. 02/22/2023 Bilateral MG 3D diag mammo w/cad [facility], [facility]. Findings: The periareolar of the left breast, the lower section of the breast of the left breast and the retroareolar of the left breast were scanned. Nodular density identified at the left 6:00 position 8 cm from the nipple with internal echoes likely reflects a complex cyst. No solid masses appreciated with certainty. Six-month follow-up mammography and ultrasound is advised.. Overall Assessment: Probably benign, BI-RAD 3 Management: Diagnostic Mammogram of the left breast in 6 months. A clinical breast exam by your physician is recommended on an annual basis and results should be correlated with mammographic findings. This exam should not preclude additional follow-up of suspicious palpable abnormalities. Results were given to the patient verbally at the time of exam. Electronically signed and approved by: Paras Gayle M.D. Radiologis
== END | disposition home or self-care (01) ==
LOC: RADMAMWWP 09:07
PROVIDERS: ATTEND Surgery
DX: R92.8 Other abnormal and inconclusive findings on diagnostic imaging of breast (principal); Z78.0 Asymptomatic menopausal state; Z80.3 Family history of malignant neoplasm of breast
CPT/HCPCS: 77062; 77066

== ENCOUNTER → 2024-01-05 | Outpatient (CLI) | payer OTHER ==
--- NOTE | 2024-01-05 16:21 | CT ---
EXAMINATION TYPE: CT cervical spine wo con DATE OF EXAM: 01/05/2024 COMPARISON: None HISTORY: Rt side neck pain x6-8wks, no injury. Radiates down rt arm. CT DLP: 627 mGycm CONTRAST: None CT of the cervical spine is performed in the axial plane at 2 mm thick sections. Reconstructed image s in the coronal, and sagittal plane are reviewed on the computer. No acute fractures are evident. Prevertebral space appears normal. Vertebral body alignment is normal. There is disc space narrowing C5-6. Vertebral body heights are preserved. No spinal canal stenosis is evident Some uncovertebral joint hypertrophy may have mild bilateral foraminal narrowing C5-6. IMPRESSION: 1. Degenerative disc changes and mild bilateral foraminal narrowing C5-6
== END | disposition home or self-care (01) ==
LOC: RADCTMAIN 15:38
PROVIDERS: ATTEND Family Medicine
DX: M50.123 Cervical disc disorder at C6-C7 level with radiculopathy (principal); M99.71 Connective tissue and disc stenosis of intervertebral foramina of cervical region; M25.511 Pain in right shoulder
CPT/HCPCS: 72125

== ENCOUNTER → 2024-03-31 | Outpatient (CLI) | payer OTHER ==
[2024-03-31 15:04] LABS: Basophils # (A) 0.03 X 10*3/uL (0.00-0.10); Basophils % (A) 0.6 %; Eosinophils # (A) 0.18 X 10*3/uL (0.04-0.35); Eosinophils % (A) 3.8 %; HCT 40.1 % (37.2-46.3); HGB 13.4 g/dL (12.0-15.0); Lymphocytes % (A) 25.5 %; MCH 29.8 pg (27.0-32.0); MCHC 33.4 g/dL (32.0-37.0); MCV 89.1 FL (80.0-97.0); Mean Platelet Volume 10.1 FL (9.5-12.2); Monocytes # (A) 0.43 X 10*3/uL (0.20-1.00); Monocytes % (A) 9.1 %; NRBC Per 100 WBC 0 X 10*3/uL (0.00-0.01); Neutrophils # (A) 2.86 X 10*3/uL (1.80-7.70); Neutrophils % (A) 60.8 %; Platelet Count 268 X 10*3/uL (140-440); RDW 12.5 % (11.5-14.5); WBC 4.71 X 10*3/uL (4.50-10.00)
[2024-03-31 15:10] LABS: ALT 22 U/L (8-44); AST 20 U/L (13-35); Albumin 4.5 g/dL (3.8-4.9); Albumin/Globulin Ratio 2.25 Ratio (1.60-3.17); Alkaline Phosphatase 145 U/L (41-126); BUN/Creat Ratio 25.88 Ratio (12.00-20.00); Blood Urea Nitrogen 20.7 mg/dL (9.0-27.0); Calcium 9.7 mg/dL (8.7-10.3); Carbon Dioxide 23.7 mmol/L (21.6-31.8); Chloride 106 mmol/L (96-109); Glucose 141 mg/dL (70-110); Potassium 4.6 mmol/L (3.5-5.5); Sodium 142 mmol/L (135-145); Total Bilirubin 0.3 mg/dL (0.3-1.2); Total Protein 6.5 g/dL (6.2-8.2)
== END | disposition home or self-care (01) ==
LOC: LABWHC1 08:41
PROVIDERS: ATTEND Internal Medicine Gastroenterology
DX: K76.0 Fatty (change of) liver, not elsewhere classified (principal)
CPT/HCPCS: 36415; 80053; 85025

== ENCOUNTER → 2024-04-14 | Outpatient (CLI) | payer OTHER ==
--- NOTE | 2024-04-14 16:06 | MM ---
Reason for Exam: Follow-up at short interval from prior study. Last screening mammogram was performed 7 month(s) ago. Patient History: Menarche at age 10. Patient has no children. Postmenopausal. Patient tested for BRCA2 outcome was uncertain variant. 06/16/2016, Benign Core Biopsy on the right side. 08/30/2000, Benign Excisional Biopsy on the right side. 10/22/2006, Bilateral Cancelled Left Needle Localization. 10/15/2006, Cancelled Left Mammotome on the left side. Paternal cousin had breast cancer, age 38. Maternal cousin had breast cancer, age 42. Mother had breast cancer, age 40. Risk Values: Queta 5 year model risk: 3.7%. NCI Lifetime model risk: 24.6%. Prior Study Comparison: 08/14/2022 Bilateral MG 3D work up w/cad [facility], [facility]. 02/22/2023 Bilateral MG 3D diag mammo w/cad [facility], [facility]. 08/27/2023 Bilateral MG 3D diag mammo w/cad [facility], [facility]. Tissue Density: Left: The breasts are extremely dense, which lowers the sensitivity of mammography. Findings: Analyzed By CAD. Pattern appears stable Chronic nodularity is in the upper outer posterior left breast. Scattered benign punctate calcifications are present. No suspicious groups of microcalcifications, spiculated or lobular masses, architectural distortion or other secondary signs of malignancy are mammographically apparent. Overall Assessment: Incomplete: need additional imaging evaluation, BI-RAD 0 Management: Diagnostic Breast Ultrasound of the left breast. A negative mammogram report should not preclude additional follow up of suspicious palpable abnormalities. Patient should continue monthly self breast exam. A clinical breast exam by your physician is recommended on an annual basis and results should be correlated with mammographic findings. Note on Queta scores and lifetime risk: 1. A Queta score greater than 3% is considered moderate risk. If this is the case, consider specialist referral to assess eligibility for a risk reducing agent. 2. If overall lifetime risk for the development of breast cancer is 20% or higher, the patient may qualify for future screening with alternating mammogram and breast MRI. [facility], , 04/14/2024 4:04 PM. Electronically signed and approved by: Marko Webster D.O. Radiologis
--- NOTE | 2024-04-17 07:41 | USB ---
Reason for Exam: Follow-up at short interval from prior study. Patient History: Menarche at age 10. Patient has no children. Postmenopausal. Patient tested for BRCA2 outcome was uncertain variant. 06/16/2016, Benign Core Biopsy on the right side. 08/30/2000, Benign Excisional Biopsy on the right side. 10/22/2006, Bilateral Cancelled Left Needle Localization. 10/15/2006, Cancelled Left Mammotome on the left side. Paternal cousin had breast cancer, age 38. Maternal cousin had breast cancer, age 42. Mother had breast cancer, age 40. Risk Values: Queta 5 year model risk: 3.7%. NCI Lifetime model risk: 24.6%. Technique: Method: Targeted. Prior Study Comparison: 08/14/2022 Bilateral MG 3D work up w/cad [facility], [facility]. 02/22/2023 Bilateral MG 3D diag mammo w/cad [facility], [facility]. 08/27/2023 Bilateral MG 3D diag mammo w/cad [facility], [facility]. Findings: The lower section of the breast of the left breast, the axilla of the left breast and the retroareolar of the left breast were scanned. There is a 0.4 x 0.3 x 0.4 cm hypoechoic area o'clock position 8 cm nipple. The slight increase in degree compared to the prior study. No significant size change is evident. Overall Assessment: Probably benign, BI-RAD 3 Management: Diagnostic Mammogram of the left breast in 6 months. Diagnostic Breast Ultrasound of the left breast in 6 months. A clinical breast exam by your physician is recommended on an annual basis and results should be correlated with mammographic findings. This exam should not preclude additional follow-up of suspicious palpable abnormalities. Results were given to the patient verbally at the time of exam. [facility], , 04/14/2024 9:41 AM . Electronically signed and approved by: Marko Webster D.O. Radiologis
== END | disposition home or self-care (01) ==
LOC: RADMAMWWP 07:37
PROVIDERS: ATTEND Surgery
DX: R92.8 Other abnormal and inconclusive findings on diagnostic imaging of breast
CPT/HCPCS: 77061; 77065